=== PATIENT | female | born 1970 | race Caucasian/White ===

== ENCOUNTER 2019-08-05 09:50 | Day surgery (SDC) | payer BC ==
[~2019-08-05 09:50] MED LIST: Albuterol 0.083% 2.5 MG/3 ML Neb Soln NEB PRN; Lactated Ringers 1,000 ML IV SCH; Lidocaine 1%/Sod Bicarbonate in NS 8.4% 1 ML Syringe IDERM PRN; Sodium Chloride 0.9% 10 ML Syringe FLUSH PRN
[2019-08-05] MEDS ORDERED: Propofol 200 MG/20 ML SDV ONE (10:18)
[2019-08-05] MEDS ORDERED: fentaNYL 100 MCG/2 ML SDV ONE (10:18)
[2019-08-05] MEDS ORDERED: Lidocaine 1% 4 ML ONE (10:19)
[2019-08-05] MEDS ORDERED: Midazolam 1 MG/ML 2 ML SDV ONE (10:19)
[2019-08-05] MEDS ORDERED: ceFAZolin 1 GM Vial ONE (10:19)
--- NOTE | 2019-08-05 10:43 | PCM.PREANE ---
Preanesthetic Assessment - Anesthesia/Transfusion/Family Hx Anesthesia History: Prior Anesthesia Reaction Type of Anesthesia Reaction: Other (see below) (takes a long time to wake up) Family History of Anesthesia Reaction: No Transfusion History: No Prior Transfusion(s) - Review of Systems General: No Symptoms Pulmonary: Shortness of Breath (always after certain activites) Cardiovascular: Dyspnea on Exertion Gastrointestinal: No Symptoms Neurological: No Symptoms Other: Reports: None - Physical Assessment NPO Status Date: 08/04/19 NPO Status Time: 22:30 Vital Signs: 158/93 71 96% 20 Height: 5 ft 6 in Weight: 158 kg ASA Class: 2 Mental Status: Alert & Oriented x3 Airway Class: Mallampati = 1 Dentition: Reports: Implants Thyro-Mental Finger Breadths: 3 Mouth Opening Finger Breadths: 3 ROM/Head Extension: Full Lungs: Clear to Auscultation, Normal Respiratory Effort Cardiovascular: Regular Rate, Regular Rhythm - Lab Values: Laboratory Last Values Urine HCG, Qual Negative (NEGATIVE) 08/05/19 10:07 MRSA (PCR) Negative 08/03/19 10:56 - Allergies Allergies/Adverse Reactions: Allergies Allergy/AdvReac Type Severity Reaction Status Date / Time acetaminophen [From Roxicet] Allergy Nausea Verified 08/04/19 17:11 amoxicillin [From Augmentin] Allergy Rash Verified 08/04/19 17:11 clavulanic acid Allergy Rash Verified 08/04/19 17:11 [From Augmentin] oxycodone [From Roxicet] Allergy Nausea Verified 08/04/19 17:11 - Blood Blood Available: No - Acknowledgements Anesthesia Type Planned: MAC Pt an Appropriate Candidate for the Planned Anesthesia: Yes Alternatives and Risks of Anesthesia Discussed w Pt/Guardian: Yes Pt/Guardian Understands and Agrees with Anesthesia Plan: Yes PreAnesthesia Questionnaire HEENT History: Reports: Impaired Vision Cardiovascular History: Reports: None Respiratory History: Reports: SOB Gastrointestinal History: Reports: GERD (occasionally- not much) 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 History: Reports: 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 Musculoskeletal History: Reports: None Neurological History: Reports: None Psychiatric History: Reports: None Endocrine/Metabolic History: Reports: Obesity/BMI 30+ Hematologic History: Reports: None Immunologic History: Reports: None Oncologic (Cancer) History: Reports: None Dermatologic History: Reports: None - Past Surgical History Head Surgeries/Procedures: Reports: None HEENT Surgical History: Reports: Naso-Sinus Surgery, Oral Surgery, Tonsillectomy , Other (See Below) (salvary gland) Cardiovascular Surgical History: Reports: None Respiratory Surgical History: Reports: None GI Surgical History: Reports: Cholecystectomy, Hernia Repair/Other Female Surgical History: Reports: Section, Cervical Conization, D&C Other Female Surgeries/Procedures: hysteroscopy Endocrine Surgical History: Reports: None Neurological Surgical History: Reports: None Musculoskeletal Surgical History: Reports: None Oncologic Surgical History: Reports: None Dermatological Surgical History: Reports: None - SUBSTANCE USE Smoking Status *Q: Never Smoker Tobacco Use Within Last Twelve Months: No Second Hand Smoke Exposure: No Days Per Week of Alcohol Use: 1 Recreational Drug Use History: No - HOME MEDS Home Medications: Home Meds Albuterol [Ventolin HFA] 1 puff INH Q4H PRN 08/04/19 [History] Ibuprofen 200 - 600 mg PO Q4H PRN 08/04/19 [History] Acetaminophen/HYDROcodone [[place] 325-5 MG] 1 - 2 tab PO Q6H PRN #15 tablet 08/05 [Rx] - CURRENT (IN HOUSE) MEDS Current Meds: Current Medications Albuterol (Proventil Neb Soln) 2.5 mg NEB ONETIME PRN PRN Reason: bronchodilation Lactated Ringer's (Ringers, Lactated) 1,000 mls @ 125 mls/hr IV ASDIRECTED ALBERTO Stop: 08/05/19 23:00 Lidocaine/Sodium Bicarbonate (Buffered Lidocaine 1% In Ns 8.4%) 0.25 ml IDERM ONETIME PRN PRN Reason: Prior to IV Start Stop: 08/05/19 18:00 Sodium Chloride (Saline Flush) 10 ml FLUSH ASDIRECTED PRN PRN Reason: Keep Vein Open Stop: 08/05/19 18:00 Discontinued Medications Cefazolin Sodium (Ancef) Confirm Administered Dose 2 gm .ROUTE .STK-MED ONE Stop: 08/05/19 10:20 Fentanyl (Sublimaze) Confirm Administered Dose 100 mcg .ROUTE .STK-MED ONE Stop: 08/05/19 10:19 Lidocaine HCl (Xylocaine-Mpf 1%) Confirm Administered Dose 4 mls @ as directed .ROUTE .STK-MED ONE Stop: 08/05/19 10:20 Midazolam HCl (Versed 1 Mg/Ml) Confirm Administered Dose 2 mg .ROUTE .STK-MED ONE Stop: 08/05/19 10:20 Propofol (Diprivan 20 Ml) Confirm Administered Dose 600 mg .ROUTE .STK-MED ONE Stop: 08/05/19 10:19
[2019-08-05] MEDS ORDERED: Triamcinolone Acetonide 40 MG/ML 1 ML MDV ONE (10:56)
[2019-08-05] MEDS ORDERED: Lidocaine 1% 30 ML SDV ONE (10:56)
[2019-08-05] MEDS ORDERED: Bupivacaine 0.25% 10 ML SDV ONE (10:56)
--- NOTE | 2019-08-05 11:52 | PCM48HPAN ---
Post Anesthesia Note - EVALUATION WITHIN 48HRS OF ANESTHETIC Vital Signs in Normal Range: Yes Patient Participated in Evaluation: Yes Respiratory Function Stable: Yes Airway Patent: Yes Cardiovascular Function Stable: Yes Hydration Status Stable: Yes Pain Control Satisfactory: Yes Nausea and Vomiting Control Satisfactory: Yes Mental Status Recovered: Yes Vital Signs: Last Vital Signs Temp 36.7 C 08/05/19 10:05 Pulse 71 08/05/19 10:05 Resp 20 08/05/19 10:05 BP 158/93 H 08/05/19 10:05 Pulse Ox 96 08/05/19 10:05
[2019-08-05] MEDS ORDERED: FLU Vacc QS2019-20(6MOS+)/PF 60 MCG/0.5 ML SYRINGE IM ONE (12:18)
[2019-08-05] MEDS ORDERED: FLU Vacc QS2019-20(6MOS+)/PF 60 MCG/0.5 ML SYRINGE ONE (12:23)
--- NOTE | 2019-08-06 10:10 | PCM.OPNOTE ---
- General Post-Op/Procedure Note Date of Surgery/Procedure: 08/05/19 Operative Procedure(s): right carpal tunnel release with right basilar thumb joint injection and bilateral knee injections Pre Op Diagnosis: right median nerve compression neuropathy, bilateral knee osteoarthrosis and right basilar thumb joint arthritis Post-Op Diagnosis: Same Anesthesia Technique: Local, MAC Primary Surgeon: Elfego Barth Anesthesia Provider: Yamileth Cota Shearing Shed Worker: Padmaja Chandler EBL in mLs: 5 Complications: None Condition: Good
--- NOTE | 2019-08-06 10:38 | OR ---
DATE OF OPERATION: 08/05/2019 SURGEON: Elfego Barth MD OPERATION PERFORMED: Right carpal tunnel release with right basilar thumb joint injection and bilateral knee injections. PREOPERATIVE DIAGNOSIS: Right median nerve compression neuropathy with bilateral knee osteoarthritis and right basilar thumb joint arthritis. POSTOPERATIVE DIAGNOSIS: Right median nerve compression neuropathy with bilateral knee osteoarthritis and right basilar thumb joint arthritis. ANESTHESIA: Local MAC. ANESTHESIA PROVIDER: Nichole Luther. FLIGHT COMMUNICATIONS SPECIALIST: Padmaja Chandler PA-C. ESTIMATED BLOOD LOSS: Less than 5 mL. COMPLICATIONS: None. CONDITION: Stable. DESCRIPTION OF PROCEDURE: The patient was identified in the preop holding area. Proper site was marked and identified by the surgeon. The patient was taken back to the operating theater where after adequate anesthesia, the patient's right upper extremity was sterilely prepped and draped in the usual sterile fashion. OR time-out was performed. The patient did not receive antibiotics and it is not indicated for soft tissue hand procedure. At this time, the right upper extremity was exsanguinated and an Esmarch was used as a tourniquet on the forearm. At this time, using 1% lidocaine without epinephrine and 0.25% Marcaine without epinephrine, the palmar cutaneous branch of the median nerve was anesthetized and then the incisional site was anesthetized using Ko cardinal line and ulnar border of the fourth digit as reference. Once this had set up, an incision was made. Blunt dissection was taken down to the palmar cutaneous fascia. Palmar cutaneous fascia was incised with a Grimes blade. At this time, the transverse carpal ligament was identified. A small rent was made in the transverse carpal ligament with a Grimes blade under direct visualization. Resection of the transverse carpal ligament was done distally using tenotomy scissors making sure to stop short of the palmar arch. At this time, attention was turned proximally after it was found to be adequately released. Using the tenotomy scissors keeping the tips ulnar to protect the palmar cutaneous branch of the median nerve, the superficial forearm fascia as well as the transverse carpal ligament were resected proximally. It was found to be adequate release both proximally and distally. At this time, adequate saline was irrigated through the wound. 4-0 nylon sutures were used closure of the skin. The patient was placed in a sterile soft dressing. The patient tolerated this part of the procedure well, and then under sterile technique, 1 mL of 40 mg Kenalog and 1 mL of 0.25% Marcaine were injected into the right basilar thumb joint under sterile technique, and then bilateral knee injections with 2 mL of 40 mg Kenalog and 4 mL of 0.25% Marcaine were injected into bilateral knees. The patient tolerated all procedures well and was sent to PACU in stable condition. GARRETT /[id number]
== END 2019-08-05 12:40 | disposition home or self-care (01) ==
LOC: JD.SDS 09:50
PROVIDERS: ATTEND Orthopaedic Surgery
DX: G56.01 Carpal tunnel syndrome, right upper limb (principal); M17.0 Bilateral primary osteoarthritis of knee; M19.041 Primary osteoarthritis, right hand; E66.01 Morbid (severe) obesity due to excess calories; Z88.5 Allergy status to narcotic agent; Z88.0 Allergy status to penicillin; Z68.43 Body mass index [BMI] 50.0-59.9, adult; Z23 Encounter for immunization; Z79.52 Long term (current) use of systemic steroids; Z79.899 Other long term (current) drug therapy
CPT/HCPCS: 20600; 20610; 64721; 81025; 87641; 90686; 94640; J2001; J2250; J2704; J3010; J3301; J3490; J7120; J0690

== ENCOUNTER 2019-08-07 09:53 | Emergency (ER) | payer BC ==
--- NOTE | 2019-08-07 10:26 | EDM.PDOC ---
ED HPI GENERAL MEDICAL PROBLEM - General Chief Complaint: Lower Extremity Injury/Pain Stated Complaint: R LEG PAIN - POST CARPAL TUNNEL SURGERY Time Seen by Provider: 08/07/19 10:10 Source of Information: Reports: Patient, RN Notes Reviewed - History of Present Illness INITIAL COMMENTS - FREE TEXT/NARRATIVE: 49-year-old female comes in with right lower leg discomfort. This started yesterday and more bothersome during the night and today. The pain is right lateral lower leg worse with walking and motion. She does have chronic edema of both lower legs which might be somewhat worse than typical. She did have carpal tunnel surgery right wrist 2 days ago and patient states doing fine with that. She's had no fever or chills and also no chest pain or difficulty breathing. No personal or known family history of blood clots. Right Leg Pain Score (Numeric/FACES): 7 - Related Data Allergies Allergy/AdvReac Type Severity Reaction Status Date / Time acetaminophen [From Roxicet] Allergy Nausea Verified 08/07/19 10:01 amoxicillin [From Augmentin] Allergy Rash Verified 08/07/19 10:01 clavulanic acid Allergy Rash Verified 08/07/19 10:01 [From Augmentin] oxycodone [From Roxicet] Allergy Nausea Verified 08/07/19 10:01 Home Meds: Home Meds Acetaminophen/HYDROcodone [[place] 325-5 MG] 1 - 2 tab PO Q6H PRN #15 tablet 08/05 [Rx] Past Medical History HEENT History: Reports: Impaired Vision Cardiovascular History: Reports: None Respiratory History: Reports: SOB Gastrointestinal History: Reports: GERD 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: Reports: 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 Musculoskeletal History: Reports: None, Other (See Below) Other Musculoskeletal History: r carpal tunnel surgery Neurological History: Reports: None Psychiatric History: Reports: None Endocrine/Metabolic History: Reports: Obesity/BMI 30+ Hematologic History: Reports: None Immunologic History: Reports: None Oncologic (Cancer) History: Reports: None Dermatologic History: Reports: None - Past Surgical History Head Surgeries/Procedures: Reports: None HEENT Surgical History: Reports: Naso-Sinus Surgery, Oral Surgery, Tonsillectomy , Other (See Below) Cardiovascular Surgical History: Reports: None Respiratory Surgical History: Reports: None GI Surgical History: Reports: Cholecystectomy, Hernia Repair/Other Female Surgical History: Reports: Section, Cervical Conization, D&C Other Female Surgeries/Procedures: hysteroscopy Endocrine Surgical History: Reports: None Neurological Surgical History: Reports: None Musculoskeletal Surgical History: Reports: None Oncologic Surgical History: Reports: None Dermatological Surgical History: Reports: None Social & Family History - Tobacco Use Smoking Status *Q: Never Smoker Second Hand Smoke Exposure: No - Caffeine Use Caffeine Use: Reports: Coffee - Recreational Drug Use Recreational Drug Use: No Review of Systems - Review of Systems Review Of Systems: See Below Constitutional: Denies: Chills, Diaphoresis, Fever Mouth/Throat: Reports: No Symptoms Respiratory: Denies: Shortness of Breath, Pleuritic Chest Pain Cardiovascular: Denies: Chest Pain GI/Abdominal: Denies: Abdominal Pain, Nausea, Vomiting Musculoskeletal: Reports: Leg Pain Skin: Denies: Erythema ED EXAM, GENERAL - Physical Exam Exam: See Below General Appearance: Alert, No Apparent Distress Throat/Mouth: Normal Inspection Head: Atraumatic Neck: Supple Respiratory/Chest: No Respiratory Distress Extremities: Leg Pain (There is tenderness of the right lateral leg, no visible swelling and not warm or erythematous. Knee is nontender without erythema or swelling. Leg otherwise nontender, foot ankle nontender.) Neurological: Alert, Oriented, No Motor/Sensory Deficits Course - Vital Signs Last Recorded V/S: Last Vital Signs Temp 98.3 F 08/07/19 10:00 Pulse 66 08/07/19 10:00 Resp 18 08/07/19 10:00 BP 158/88 H 08/07/19 10:00 Pulse Ox 100 08/07/19 10:00 - Re-Assessments/Exams Free Text/Narrative Re-Assessment/Exam: 08/07/19 12:41 Ultrasound of lower extremity was negative for DVT, discharge instructions as documented Departure - Departure Time of Disposition: 12:03 Disposition: Home, Self-Care 01 Condition: Fair Clinical Impression: Leg pain, right, Leg edema - Discharge Information Instructions: Musculoskeletal Pain Referrals: Megan Whitaker MD [Primary Care Provider] - Forms: ED Department Discharge Additional Instructions: For now rest and elevate legs as much as possible. Alternate ice and heat to area of discomfort right leg as needed, you can also safely alternate Tylenol and ibuprofen as needed for discomfort. Follow up clinic if discomfort not resolving over the next 3-5 days as expected, return to ED as needed if symptoms worsening in any way. Sepsis Event Note - Evaluation Sepsis Screening Result: No Definite Risk - Focused Exam Vital Signs: Vital Signs Temp Pulse Resp BP Pulse Ox 08/07/19 10:00 98.3 F 66 18 158/88 H 100 Date Exam was Performed: 08/07/19 Time Exam was Performed: 12:41
--- NOTE | 2019-08-07 11:45 | US ---
Right lower extremity deep venous ultrasound: Duplex and color Doppler evaluation was obtained of the right common femoral, proximal greater saphenous, superficial femoral, popliteal, posterior tibial and peroneal veins. Left common femoral vein was also evaluated. Veins of the calf are not optimally seen. There is edema noted within the left calf. Other veins show normal phasic flow, augmentation and compression. Impression: 1. Calf veins not optimally seen. Edema is noted within the left calf. 2. Other deep veins show no evidence of deep venous thrombosis. Diagnostic code #2 This report was dictated in [place] Standard Time
== END 2019-08-07 12:14 | disposition home or self-care (01) ==
LOC: JD.ED 09:53
DX: M79.604 Pain in right leg (principal); R60.0 Localized edema; E66.9 Obesity, unspecified; Z68.44 Body mass index [BMI] 60.0-69.9, adult; Z88.8 Allergy status to other drugs, medicaments and biological substances; Z88.1 Allergy status to other antibiotic agents; Z88.5 Allergy status to narcotic agent
CPT/HCPCS: 93971-26-RT; 93971-RT; 99282; 99283-25

== ENCOUNTER 2020-06-14 10:33 | Day surgery (SDC) | payer BC ==
[~2020-06-14 10:33] MED LIST changes: -Albuterol 0.083% 2.5 MG/3 ML Neb Soln NEB PRN
--- NOTE | 2020-06-14 11:12 | PCM.PREANE ---
Preanesthetic Assessment - Anesthesia/Transfusion/Family Hx Anesthesia History: Prior Anesthesia Without Reaction Family History of Anesthesia Reaction: No Transfusion History: No Prior Transfusion(s) - Review of Systems General: No Symptoms Pulmonary: No Symptoms Cardiovascular: No Symptoms Gastrointestinal: No Symptoms Neurological: No Symptoms Other: Reports: None - Physical Assessment NPO Status Date: 06/13/20 NPO Status Time: 23:30 ASA Class: 2 Mental Status: Alert & Oriented x3 Airway Class: Mallampati = 2 Dentition: Reports: Normal Dentition, Broken Tooth/Teeth (front right chipped ) Thyro-Mental Finger Breadths: 3 Mouth Opening Finger Breadths: 3 ROM/Head Extension: Full Lungs: Clear to Auscultation, Normal Respiratory Effort Cardiovascular: Regular Rate, Regular Rhythm - Allergies Allergies/Adverse Reactions: Allergies Allergy/AdvReac Type Severity Reaction Status Date / Time acetaminophen [From Roxicet] Allergy Nausea Verified 06/13/20 13:23 amoxicillin [From Augmentin] Allergy Rash Verified 06/13/20 13:23 clavulanic acid Allergy Rash Verified 06/13/20 13:23 [From Augmentin] oxycodone [From Roxicet] Allergy Nausea Verified 06/13/20 13:23 - Acknowledgements Anesthesia Type Planned: MAC Pt an Appropriate Candidate for the Planned Anesthesia: Yes Alternatives and Risks of Anesthesia Discussed w Pt/Guardian: Yes Pt/Guardian Understands and Agrees with Anesthesia Plan: Yes PreAnesthesia Questionnaire HEENT History: Reports: Impaired Vision Cardiovascular History: Reports: None, SOB on Exertion Respiratory History: Reports: SOB Gastrointestinal History: Reports: GERD Genitourinary History: Reports: None 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 Musculoskeletal History: Reports: None, Other (See Below) Other Musculoskeletal History: r carpal tunnel surgery Neurological History: Reports: None Psychiatric History: Reports: Anxiety Endocrine/Metabolic History: Reports: Obesity/BMI 30+ Hematologic History: Reports: None Immunologic History: Reports: None Oncologic (Cancer) History: Reports: None Dermatologic History: Reports: None - Infectious Disease History Infectious Disease History: Reports: None - Past Surgical History Head Surgeries/Procedures: Reports: None HEENT Surgical History: Reports: Naso-Sinus Surgery, Oral Surgery, Tonsillectomy, Other (See Below) Other HEENT Surgeries/Procedures: salivatory gland removal Cardiovascular Surgical History: Reports: None Respiratory Surgical History: Reports: None GI Surgical History: Reports: Cholecystectomy, Hernia Repair/Other Female Surgical History: Reports: Section, Cervical Conization, D&C Other Female Surgeries/Procedures: hysteroscopy Endocrine Surgical History: Reports: None Neurological Surgical History: Reports: None Musculoskeletal Surgical History: Reports: Carpal Tunnel Oncologic Surgical History: Reports: None Dermatological Surgical History: Reports: None - SUBSTANCE USE Tobacco Use Status *Q: Never Tobacco User Recreational Drug Use History: No - HOME MEDS Home Medications: Home Meds Albuterol Sulfate [Albuterol Sulfate Hfa] 1 puff INH Q4H PRN 06/13/20 [History] Ibuprofen 200 - 600 mg PO Q4H PRN 06/13/20 [History] hydrOXYzine HCL [hydrOXYzine] 25 mg PO QID PRN 06/13/20 [History] - CURRENT (IN HOUSE) MEDS Current Meds: Current Medications Lactated Ringer's (Ringers, Lactated) 1,000 mls @ 125 mls/hr IV ASDIRECTED ALBERTO Stop: 06/14/20 23:00 Lidocaine/Sodium Bicarbonate (Buffered Lidocaine 1% In Ns 8.4%) 0.25 ml IDERM ONETIME PRN PRN Reason: Prior to IV Start Stop: 06/14/20 18:00 Sodium Chloride (Saline Flush) 10 ml FLUSH ASDIRECTED PRN PRN Reason: Keep Vein Open Stop: 06/14/20 18:00
[2020-06-14] MEDS ORDERED: Lidocaine 1% 4 ML ONE (13:31)
[2020-06-14] MEDS ORDERED: Propofol 200 MG/20 ML SDV ONE ×6 (13:31→15:37)
[2020-06-14] MEDS ORDERED: fentaNYL 100 MCG/2 ML SDV ONE (15:23)
[2020-06-14] MEDS ORDERED: Ondansetron 4 MG/2 ML SDV ONE (15:25)
[2020-06-14] MEDS ORDERED: Lactated Ringers 1,000 ML ONE (15:35)
--- NOTE | 2020-06-14 16:08 | PCM.OPNOTE ---
- General Post-Op/Procedure Note Date of Surgery/Procedure: 06/14/20 Operative Procedure(s): colonoscopy Findings: 1. Diverticulosis 2. Hepatic flexure polyp 3. Descending colon polyp x2 Pre Op Diagnosis: screening for colon cancer Post-Op Diagnosis: same Anesthesia Technique: General ET Tube Primary Surgeon: Amber Braswell Anesthesia Provider: Bianka Mendoza Portable Sawyer: Yamileth Cota Pathology: 1. Hepatic flexure polyp 2. Descending colon polyp x2 Fluid Replacement, Intraop: 1,100 Complications: none apparent Condition: Good
--- NOTE | 2020-06-14 16:11 | PCM48HPAN ---
Post Anesthesia Note - EVALUATION WITHIN 48HRS OF ANESTHETIC Vital Signs in Normal Range: Yes Patient Participated in Evaluation: Yes Respiratory Function Stable: Yes Airway Patent: Yes Cardiovascular Function Stable: Yes Hydration Status Stable: Yes Pain Control Satisfactory: Yes Nausea and Vomiting Control Satisfactory: Yes Mental Status Recovered: Yes Vital Signs: Last Vital Signs Temp 36.3 C 06/14/20 15:53 Pulse 73 06/14/20 15:53 Resp 18 06/14/20 15:53 BP 151/71 H 06/14/20 15:53 Pulse Ox 94 L 06/14/20 15:53
--- NOTE | 2020-06-14 16:30 | PCM.PRNOTE ---
- Free Text/Narrative Note: Operative Report Date of Surgery/Procedure: June 14, 2020 Operative Procedure: Colonoscopy to cecum with biopsy Pre Op Diagnosis: colorectal cancer screening Post-Op Diagnosis: same Surgeon: Amber Braswell mD Anesthesia Technique: MAC Anesthesia Provider: Yamileth Cota CRNA and Bianka Mendoza CRNA IV Fluid Replacement, Intraop: 1100cc Output, Urine Amount: 0cc EBL : 0cc Findings: 1. Diverticulosis 2. Hepatic flexure polyp 3. Descending colon polyps x2 Specimens: 1. Hepatic flexure polyp 2. Descending colon polyps x2 Indication: The patient is a 50 year-old lady who presented to the outpatient clinic requesting colorectal cancer screening. The patient has a history of no significant abdominal findings. We discussed the procedure of a screening colonoscopy including the polypectomy and biopsy. Risks of bleeding and perforation were discussed, the patient understood and wished to proceed. Written and consent was obtained Description of the procedure: The patient was brought to the endoscopy suite and placed in the left lateral decubitus position. Appropriate monitors were applied. The patient was given MAC anesthesia. An anorectal examination was performed, revealing no external abnormality. The scope was placed into the rectum and advanced to cecum with moderate difficulty requiring withdrawal and reinsertion of the scope, application of abdominal external pressure, and change in patient position to supine. These maneuvers did allow for successful completion of the colonoscopy. The patients cecum was entered, and the ileocecal valve and appendiceal orifice were identified and normal. At this point, the scope was withdrawn, paying careful attention to the mucosa. The patient had good bowel prep, allowing for visualization of 85-90% of the mucosa with some washing and suctioning. A flat 3 mm polyp was noted in the hepatic flexure, and was removed using a jumbo cold biopsy forceps. In the descending colon 2 flat polyps measuring approximately 3 mm each were noted and removed using a jumbo cold biopsy forceps. There was diverticulosis noted in the descending and sigmoid colon, as well as a few scattered in the transverse colon. In the rectum, the scope was retroflexed and no abnormalities were noted, except for some hemorrhoidal tissue. The scope was placed back in the lumen and the excess air was aspirated. The patient tolerated the procedure well. Complications: none apparent Condition: Good, transported to PACU in stable condition Amber Braswell MD General Surgery
== END 2020-06-14 16:31 | disposition home or self-care (01) ==
LOC: JD.SDS 10:33
PROVIDERS: ATTEND Surgery
DX: Z12.11 Encounter for screening for malignant neoplasm of colon (principal); D12.3 Benign neoplasm of transverse colon; D12.4 Benign neoplasm of descending colon; K57.30 Diverticulosis of large intestine without perforation or abscess without bleeding; K64.9 Unspecified hemorrhoids; F41.9 Anxiety disorder, unspecified; E66.9 Obesity, unspecified; Z98.890 Other specified postprocedural states; Z79.899 Other long term (current) drug therapy; Z88.5 Allergy status to narcotic agent; Z68.42 Body mass index [BMI] 45.0-49.9, adult
CPT/HCPCS: 45380; J2001; J2405; J2704; J3010; J7120; 00812